=== PATIENT | male | born 1965 | race Caucasian/White ===

== ENCOUNTER → 2017-01-19 | Outpatient (CLI) | payer OTHER ==
[~2017-01-19] MED LIST: FLUT9.9S
--- NOTE | 2017-01-19 14:40 | DI ---
Indication: ITS.REASON: M79.662 LEFT LEG PAIN PROCEDURE: US VENOUS DUPLEX, LOWER EXT LT: Encounter: Initial Comparison: None Technique: Color Doppler duplex and grayscale sonographic imaging of the left lower extremity was performed. Findings: There is no evidence for acute deep venous thrombosis in the left thigh. Specifically, serial graded compression was performed from the inguinal ligament to the popliteal bifurcation, on the left thigh, demonstrating appropriate compressibility of the deep venous system. In addition, color and pulsed Doppler demonstrate appropriate spontaneous flow, variation with respiration, and augmentation with calf compression. At the ankle, normal flow is identified in the posterior tibial veins; these vessels are also normal in caliber. No sonographic abnormality in the left mid calf area of pain. Impression: No evidence of acute DVT in the left lower limb. .
== END ==
LOC: IMA 13:01
PROVIDERS: ATTEND Family Medicine
DX: M79.662 Pain in left lower leg (principal)